=== PATIENT | male | born 1975 | race Caucasian/White ===

== ENCOUNTER 2020-09-21 15:53 | Emergency (ER) | payer BC ==
[2020-09-21 16:02] VITALS: BP 121/72; PULSE 91; RESP 16; TEMP 98.1
[2020-09-21] MEDS ORDERED: FLUORESCEIN STRIPS 1 MG STRIP LEFT EYE ONE (16:22)
--- NOTE | 2020-09-21 16:33 | ED ---
Eye Problem HPI - General Chief complaint: Eye Problems Stated complaint: Metal in eye Time Seen by Provider: 09/21/20 16:09 Source: patient, RN notes reviewed Mode of arrival: ambulatory Limitations: no limitations - History of Present Illness Initial comments: 45-year-old male that presents to emergency room complaining of left eye foreign body sensation. He notes he was cutting aluminum pole on a piece hit the exterior lower eyelid he closes his eyes rolled quicken and noted some mild irritation. He noted that he immediately opened his eyes with his fingers blink a lot flush it with some water. He notes that while sitting in bed he has no discomfort irritation pain or change in vision. He wanted to come in to make sure there is nothing is eye. The chest pain short of breath headache nausea vomiting diarrhea constipation fever fatigue chills change in vision blurry vision - Related Data Allergies Allergy/AdvReac Type Severity Reaction Status Date / Time No Known Allergies Allergy Verified 09/21/20 16:02 Review of Systems ROS Statement: Those systems with pertinent positive or pertinent negative responses have been documented in the HPI. ROS Other: All systems not noted in ROS Statement are negative. Past Medical History Past Medical History: No Reported History History of Any Multi-Drug Resistant Organisms: None Reported Past Surgical History: No Surgical Hx Reported Past Psychological History: Depression Smoking Status: Never smoker Past Alcohol Use History: None Reported Past Drug Use History: Marijuana General Exam Limitations: no limitations General appearance: alert, in no apparent distress Head exam: Present: atraumatic, normocephalic, normal inspection Eye exam: Present: normal appearance, PERRL, EOMI. Absent: scleral icterus, conjunctival injection, periorbital swelling Respiratory exam: Present: normal lung sounds bilaterally. Absent: respiratory distress, wheezes, rales, rhonchi, stridor Cardiovascular Exam: Present: regular rate, normal rhythm, normal heart sounds. Absent: systolic murmur, diastolic murmur, rubs, gallop, clicks Extremities exam: Present: normal inspection, full ROM, normal capillary refill. Absent: tenderness, pedal edema, joint swelling, calf tenderness Neurological exam: Present: alert, oriented X3, CN II-XII intact Psychiatric exam: Present: normal affect, normal mood Skin exam: Present: warm, dry, intact, normal color. Absent: rash Course Vital Signs 09/21/20 16:00 Temperature 98.1 F Pulse Rate 91 Respiratory 16 Rate Blood Pressure 121/72 O2 Sat by Pulse 96 Oximetry Medical Decision Making - Medical Decision Making 45-year-old male possible metallic foreign body in left eye. Fluoroscene stain and wood lamp used to inspect for any abrasions was negative. Inspection of the eye with a otoscope light held at 90 to his eye didn't show any foreign body. Case discussed with Dr. Hammonds, patient discharge home with follow-up to his eye doctor. Disposition Clinical Impression: Foreign body of cornea Disposition: HOME SELF-CARE Condition: Stable Instructions (If sedation given, give patient instructions): Eye Foreign Body (ED) Additional Instructions: Please return to the Emergency Department if symptoms worsen or any other concerns. Follow-up with eye doctor if pain irritation or change in vision occur. Avoid rubbing or touching eye for the next several days. Is patient prescribed a controlled substance at d/c from ED?: No Referrals: German Matthew MD [Primary Care Provider] - 1-2 days Time of Disposition: 16:32
== END 2020-09-21 16:42 | disposition home or self-care (01) ==
LOC: EC 15:53
DX: T15.02XA Foreign body in cornea, left eye, initial encounter (principal); F32.9 Major depressive disorder, single episode, unspecified; F12.90 Cannabis use, unspecified, uncomplicated; W22.8XXA Striking against or struck by other objects, initial encounter
CPT/HCPCS: 99283